=== PATIENT | female | born 1955 | race Two or more races ===

== ENCOUNTER 2018-02-08 03:02 | Emergency (ER) | payer OTHER ==
[~2018-02-08] VITALS: Ht 152.4 cm; Wt 72.7 kg
[2018-02-08] MEDS ORDERED: PHENYLEPHRINE NASAL 1%, 30ML DROPS NAS ONE (03:30)
[2018-02-08] MEDS ORDERED: PHENYLEPHRINE NASAL 1%, 15ML SPRAY ONE (03:31)
[2018-02-08 03:59] LABS: BASOPHILS # (AUTO) 0.04 x10^3/uL (0-0.1); BASOPHILS % (AUTO) 1 % (0-1); EOSINOPHILS # (AUTO) 0.14 x10^3/uL (0-0.4); EOSINOPHILS % (AUTO) 2 % (1-7); LYMPHOCYTES # (AUTO) 1.95 x10^3/uL (1-3.4); LYMPHOCYTES % (AUTO) 22 % (22-44); MD NO; MEAN CORPUSCULAR HEMOGLOBIN 30.5 pg (27.0-34.8); MEAN CORPUSCULAR HGB CONC 33.9 g/dL (32.4-35.8); MEAN PLATELET VOLUME 9.2 fL (7.4-10.4); MONOCYTES # (AUTO) 0.75 x10^3/uL (0.2-0.8); MONOCYTES % (AUTO) 9 % (2-9); NEUTROPHILS # (AUTO) 5.82 x10^3/uL (1.8-6.8); NEUTROPHILS % (AUTO) 67 % (42-75); PLATELET COUNT 232 x10^3/uL (130-400); RED BLOOD COUNT 4.18 x10^6/uL (3.82-5.3); RED CELL DISTRIBUTION WIDTH 13.8 % (9.6-15.2)
[2018-02-08] MEDS ORDERED: OXYMETAZOLINE NASAL SPRAY 0.05%, 15ML NAS ONE (04:00)
[2018-02-08 04:09] LABS: ALBUMIN 3.7 g/dL (3.4-5.0); ANION GAP 10 mmol/L (5-15); CALCIUM 9.1 mg/dL (8.5-10.1); CHLORIDE 108 mmol/L (98-107); CREATININE 0.81 mg/dL (0.55-1.02)
[2018-02-08 05:20] VITALS: BP 146/87
== END 2018-02-08 05:22 | disposition home or self-care (01) ==
LOC: ED 05:16
DX: R04.0 Epistaxis (principal)
CPT/HCPCS: 36415; 80048; 82040; 85025; 93005; 99285

== ENCOUNTER 2018-02-09 14:27 | Emergency (ER) | payer OTHER ==
[~2018-02-09] VITALS: Ht 152.4 cm; Wt 82.0 kg
[2018-02-09 14:34] VITALS: BP 131/73
== END 2018-02-09 15:01 | disposition home or self-care (01) ==
LOC: ED 14:30
DX: Z48.02 Encounter for removal of sutures (principal)
CPT/HCPCS: 99281